=== PATIENT | male | born 1970 | race Caucasian/White ===

== ENCOUNTER 2024-06-06 21:58 | Emergency (ER) | payer BC, SELFPAY ==
--- OUTSIDE RECORDS SUMMARY | 2024-06-06 22:00 | XMS_ITS | Encounter Summary ---
Author Organization [facility] Address [address] [place] [address] Care Team Providers Care Dust Box Worker Name Role Phone Ami Gudino M.D. Primary Care Provider Reason for Visit * Reason Onset Date Comments Rx Approval 03/24/2024 upadacitinib (Ri nvoq) 15 mg 24 hr tablet Approval Encounter Details Date Type Department Care Team (Latest Contact Info) Description 03/24/2024 Clinical Communication Pharmacy Prior Auth [phone] Leeanna Nino [address] [place] [address] Rx Approval (upadacitinib (Rinvoq) 15 mg 24 hr tablet Approval) Social History Tobacco Use Types Packs/Day Years Used Date Smoking Tobacco: Never Smokeless Tobacco: Never Alcohol Use Standard Drinks/Week Comments Yes 2 (1 standard drink = 0.6 oz pur e alcohol) Occasionally Humiliation, Afraid, Rape, and Kick questionnair e Answer Date Recorded Within the last year, have y ou been afraid of your partner or ex-partner? No 12/08/2021 Within the last year, have y ou been humiliated or emotionally abused in other ways by your partner or ex-partner? No Within the last year, have y ou been kicked, hit, slapped, or otherwise physically hurt by your partner or ex-partner? No 12/08/2021 Within the last year, have y ou been raped or forced to have any kind of sexual activity by your partner or ex-partner? No 12/08/2021 Social Connection and Isolat ion Panel [NHANES] Answer Date Recorded In a typical week, how many times do you talk on the phone with family, friends, or neighbors? More than three times a week 12/08/2021 How often do you get togethe r with friends or relatives? Once a week 12/08/2021 How often do you attend chur ch or presybeterian services? Never 12/08/2021 Do you belong to any clubs o r organizations such as religion groups, unions, fraternal or athletic groups, or school groups? No 12/08/2021 How often do you attend meet ings of the clubs or organizations you belong to? Never 12/08/2021 Are you , , di vorced, , never , or living with a partner? 12/08/2021 AUDIT-C Answer Date Recorded Q1: How often do you have a drink containing alc ohol? Patient declined 12/08/2021 Average Number of Drinks Not on file 022 Frequency of Binge Drinking Not on file 11/27 Overall Financial Resource Strain (CARDIA) Answe r Date Recorded How hard is it for you to pa y for the very basics like food, housing, medical care, and heating? Not very hard 12/18/2022 PHQ-2 Answer Date Recorded PHQ-2 Score 1 03[facility]24 [facility] Questionnaire Answer Date Recorded Do you feel stress - tense, restless, nervous, or anxious, or unable to sleep at night because your mind is troubled all the time - these days? Not at all 12/08/2021 Exercise Vital Sign Answer Date Recorde d On average, how many days pe r week do you engage in moderate to strenuous exercise (like a brisk walk)? 5 days 12/18/2022 On average, how many minutes do you engage in exercise at this level? 90 min 12/18/2022 Hunger Vital Sign Answer Date Recorded Within the past 12 months, y ou worried that your food would run out before you got the money to buy more. Never true 12/19/19 23 Within the past 12 months, t he food you bought just didn't last and you didn't have money to get more. Never true 12/18/2022 PRAPARE - Transportation Answer Date Re corded In the past 12 months, has l ack of transportation kept you from medical appointments or from getting medications? No 11/28 In the past 12 months, has l ack of transportation kept you from meetings, work, or from getting things needed for daily living? No 12/18/2022 Depression Answer Date Recor ded PHQ-9 Total Score (max 27) 3 03/10 Nutrition Answer Date Recorded On average, how many serving s of fruits and vegetables do you eat per day (serving size is equal to 1 cup or approximately the size of a tennis ball)? 0-2 12/18/2022 Dental Answer Date Recorded Dental: Regular Dentist No 03/10/20 Employment Answer Date Recorded Employment status Employed and actively working without restrictions 12/18/2022 Housing Stability Answer Date Recorded What is your living situation today? I have a [facility] place to live 12/18/2022 Education Answer Date Recorded What is the highest level of school you have completed or the highest degree you have received? Associate degree: occupational, technical, or vocational program 04/07/2021 Sex and Gender Information Value Date Recorded Sex Assigned at Male 03/10/2021 3:00 AM CREAM MAKER Legal Sex Male 6:27 PM CREAM MAKER Gender Identity Male 03/10/2021 3:00 AM CREAM MAKER Sexual Orientation Choose not to disclose 2022 10:55 PM CDT Sexual Orientation Straight 11/05/2022 10 :55 PM CDT documented as of this encounter Miscellaneous Notes * Telephone Encounter - Leeanna Nino - 03/24/2024 1:55 PM CST Pharmaceutical prior authorization has been approved for upadacitinib (Rinvoq) 15 mg 24 hr tablet Approval If you have any follow-up questions, please send an [employer] in [employer] message to [facility]. M MAKER documented in this encounter Plan of Treatment Upcoming Encounters Date Type Department Care Team (Latest Contact Info) Description 08/17/2024 10:00 AM CDT Clinical Communication Virtual Review in [address] [phone] 08/18/2024 12:30 PM CDT Appointment Department of Laboratory Medicine and Pathology, [facility], in [place], [place] [address] [place] [address] Jessica Hendricks APRN, C.N.P. [address] [place] [address] 08/18/2024 2:45 PM CDT Office Visit Division of Rheumatology in [place], [place] [address] [place] [address] Jessica Hendricks APRN, C.N.P. [address] [place] [phone] documented as of this encounter Visit Diagnoses Not on filedocumented in this encounter Additional Health Concerns Assessment Noted Time PHQ-9 Depression Total Score: 3 03/10/20 24 1:06 PM CREAM MAKER documented as of this encounter Care Teams Dust Box Worker Relationship Specialty Start Date End Date Ami Gudino M.D. [address] [place] [phone] PCP - General 09/10/23 documented as of this encounter
--- OUTSIDE RECORDS SUMMARY | 2024-06-06 22:00 | XMS_ITS | Encounter Summary ---
Author Organization [facility] Address [address] [place] [address] Care Team Providers Care Loading Manager Name Role Phone Ami Gudino M.D. Primary Care Provider Reason for Visit * Reason Comments Hernia Possible Hernia * Appointment Request (Routine) - Closed Specialty Diagnoses / Procedures Referred By Kassandra lagunas Referred To Contact Family Medicine Referral ID Status Reason Start Date Expiration Date Visits Re quested Visits Authorized [id number] Closed 05/22/2024 08/22/2025 1 1 Encounter Details Date Type Department Care Team (Late st Contact Info) Description 05/25/2024 8:30 AM FRANCHISE BROKER Office Visit Department of Family Medicine, [facility], in [place], [place] [address] [phone] Maddi Munoz P.A.-Sarah., P.A., M.S., M.P.H. [address] [phone] Candidiasis Intertrigo (Primary Dx); Injury Abdominal Muscle Subsequent Social History Tobacco Use Types Packs/Day Years [...] often do you attend chur ch or druze services? Never 12/08/2021 Do you belong to any clubs o r organizations such as uatsdin groups, unions, fraternal or athletic groups, or [...] 12/18/2022 PHQ-2 Answer Date Recorded PHQ-2 Score 2 05/25/2024 [facility] Occupat ional Health - Occupational Stress Questionnaire Answer [...] Recor ded PHQ-9 Total Score (max 27) 4 05/05 Nutrition Answer Date Recorded On average, how [...] your living situation today? I have a [facility] place to live 12/18/2022 Education Answer Date Recorded What is the highest level of school you have completed or the highest degree you have received? Associate degree: occupational, technical, or vocational program 04/07/2021 Sex and Gender Information Value Date Recorded Sex Assigned at Male 03/10/2021 3:00 AM FRANCHISE BROKER Legal Sex Male 6:27 PM FRANCHISE BROKER Gender Identity Male 03/10/2021 3:00 AM FRANCHISE BROKER Sexual Orientation Choose not to disclose 2022 10:55 PM CDT Sexual Orientation Straight 11/05/2022 10 :55 PM CDT documented as of this encounter Last Filed Vital Signs Vital Sign Reading Time Taken Comments Blood Pressure 133/82 05/25/2024 8:11 AM FRANCHISE BROKER Re3 check Pulse 69 05/25/2024 8:11 AM FRANCHISE BROKER Temperature 36.1 C (96.9 F) 05/25/2024 8:06 AM FRANCHISE BROKER Respiratory Rate - - Oxygen Saturation - - Inhaled Oxygen Concentration - - Weight 145 kg (320 lb 5.3 oz) 05/25/2024 8:06 AM FRANCHISE BROKER Height 185.5 cm (6' 1.03) 05/25/2024 8:06 AM CS T Body Mass Index 42.23 05/25/2024 8:06 AM FRANCHISE BROKER documented in this encounter Progress Notes * Maddi Munoz P.A.-C., PJohn, MCarmenS., M.P.H. - 05/25/2024 8:30 AM FRANCHISE BROKER SUBJECTIVE CHIEF COMPLAINT/REASON FOR VISIT Keshav Benoit is a 54 y.o. male who presents for evaluation of Hernia (Possible Hernia). HISTORY OF PRESENT ILLNESS Keshav Benoit is a 54 y.o. male with a health history significant for rheumatoid arthritis, coccydynia, depressive disorder, erectile dysfunction, prostate nodule, anxiety phobia specific, who presents today with concerns of having a hernia. A couple of months ago, his hit a bump with his chicken picker truck and felt a jolt and tearing pain in the suprapubic area radiating to the groins , scrotum, and upper thighs. Patient has not resolved. Pain occurs only when he moves, he feels he is tearing apart when changing sides in bed, walking, sitting. No mass noticed. No urinary or stool changes, but the event happened at the same time he had a cystoscopy. He wonders if these could be related. The following portions of the patient's history were reviewed and updated as appropriate: Family history, medical history, social history, surgical history and problem list. CURRENT MEDICATIONS Current Medications[1] ALLERGIES/CONTRAINDICATIONS Allergies[2] REVIEW OF SYSTEMS Please see History of Present Illness for pertinent positives and negatives, otherwise full remainder of Review of Systems negative. OBJECTIVE VITAL SIGNS BP 133/82 (BP Location: Right arm, Patient Position: Sitting, Cuff Size: Large) Comment: [id number] Pulse 69 Temp 36.1 ??C (Temporal) Ht 185.5 cm Wt (!) 145 kg BMI 42.23 kg/m?? PHYSICAL EXAMINATION General: Patient is alert and oriented, in no acute distress. Capable of full communication withoutdifficulty. Patient is polite and cooperative, appropriately dressed and with good hygiene. HEENT: Normocephalic, atraumatic. Heart: Regular rate and rhythm. No murmurs, gallops or rubs noted. No carotids bruit. Lungs: Clear to auscultation bilaterally. No wheezes or crackles. No accessory muscles of respiration noted. Abdomen: normal sounds, distended and redundant abdomen, in a fold over the pelvic area, with intertrigo. There is mild tenderness to palpation of right inguinal region. No masses found. No Elvira appendix pain. No guarding or rebound. Genital exam: (done with a rounding and backing machine operator from staff) Normal genitalia. Normal scrotum and testes. Thereare not palpable inguinal hernias noted. ASSESSMENT / PLAN #1 Candidiasis Intertrigo #2 Injury Abdominal Muscle Subsequent I indicated to apply clotrimazole cream 2 times daily until rash and pruritus resolve. Discussed potential diagnosis including inguinal hernia, abdominal muscle or recti fascia strain, pubalgia. I am inclined to diagnosed this pain as a muscle or fascia strained secondary to the truck jumping.I also recommended to monitor the inguinal and scrotal areas for a mass, worsening pain, or erythema. I this happens he should return to the clinic or the ED. Patient understands and agrees with the plan. Maddi Munoz PA-C [1] Current Outpatient Medications: ARIPiprazole (Abilify) 5 mg tablet, Take 1 tablet (5 mg total) by mouth daily., Disp: 90 tablet, Rfl: 1 busPIRone (BuSpar) 15 mg tablet, Take 1 tablet (15 mg total) by mouth 2 (two) times a day., Disp: 180 tablet, Rfl: 1 cetirizine (ZyrTEC) 10 mg tablet, Take 1 tablet by mouth daily as needed., Disp: , Rfl: DULoxetine (Cymbalta) [address] capsule, Take 2 capsules (120 mg total) by mouth daily., Disp: 180 capsule, Rfl: 1 fluocinonide (LIDEX) 0.05 % ointment, Apply 1 application topically 2 (two) times a day as needed for irritation, itching or rash. Avoid face and groin., Disp: 60 g, Rfl: 0 gabapentin (Neurontin) 300 mg capsule, Take 1 capsule (300 mg total) by mouth 3 (three) times a day., Disp: 270 capsule, Rfl: 3 predniSONE (DELTASONE) 10 mg tablet, Take 1 tablet (10 mg total) by mouth as needed (RA flare)., Disp: 30 tablet, Rfl: 0 tamsulosin (Flomax) 0.4 mg 24 hr capsule, Take 1 capsule by mouth at bedtime, Disp: 90 capsule, Rfl: 3 triamcinolone (KENALOG) 0.1 % cream, Apply topically 2 (two) times a day., Disp: 30 g, Rfl: 1 upadacitinib (Rinvoq) 15 mg 24 hr tablet, Take 1 tablet (15 mg total) by mouth daily., Disp: 30 tablet, Rfl: 5 [2] Allergies Allergen Reactions Adalimumab Edema (Reselect Reaction) Facial swelling . Etanercept Other (see comments) Facial swelling CHISE BROKER documented in this encounter Plan of Treatment Upcoming Encounters Date Type Department Care Team (Latest Contact Info) Description 08/17/2024 10:00 AM CDT Clinical Communication Virtual Review in [address] [phone] 08/18/2024 12:30 PM CDT Appointment Department of Laboratory Medicine and Pathology, [facility], in [address] [phone] Jessica Hendricks APRN, C.N.P. [address] [place] [phone] 08/18/2024 2:45 PM CDT Office Visit Division of Rheumatology in [address] [phone] Jessica Hendricks APRN, C.N.P. [address] [place] [phone] documented as of this encounter Visit Diagnoses Diagnosis Candidiasis Intertrigo- Primary Injury Abdominal Muscle Subsequent documented in this encounter Additional Health Concerns Assessment Noted Time PHQ-9 Depression Total Score: 4 05/05/19 25 1:10 PM FRANCHISE BROKER documented as of this encounter Care Teams Loading Manager Relationship Specialty Start Date End Date Ami Gudino M.D. [address] [place] [phone] PCP - General 09/10/23 documented as of this encounter
--- OUTSIDE RECORDS SUMMARY | 2024-06-06 22:00 | XMS_ITS | Clinical Summary ---
Author Organization [facility] Address [address] [place] [address] Care Team Providers Care Sales Contracts Analyst Name Role Phone Chata Schwab MD Unavailable [phone] Estiven Hawkins MD Unavailable Unavailable Clinic, [facility] Primary [facility] Pro vider Allergies Active Allergy Reactions Criticality Noted Date Comments Etanercept Other - Describe In Comment Field 05/16/2019 Facial swelling Adalimumab Other - Describe In Comment Field 05/16/2019 Facial swelling . [place] *Unknown 06/03/2018 A doc told him that he was lithium intolerant Medications tamsulosin (FLOMAX) 0.4 mg capsuleIndication s:BPH without urinary obstruction,Rheum atoid arthritis, involving unspecified site, unspecified rheumatoid factor presence,Decrease d libido Take 1 capsule by mouth once daily after a meal. 90 capsule 3 12/01/19 19 Active camphor-menthoL (TIGER BALM) 11-11 % ointIndications:C hronic pain of right knee White ointment or sports rub, up to 5x/day as needed then warm compress over. 1 jar 05/20/19 21 Active triamcinolone (ARISTOCORT) 0.1 % ointmentIndicatio ns:Irritant contact dermatitis, unspecified trigger Apply topically to affected area(s) 3 times daily. 80 g 1 05/20/19 21 Active methotrexate (RHEUMATREX) 2.5 mg tabletIndications :High risk medication use,Medication management Take 6 tablets by mouth once weekly. 72 tablet. 1 02/22/20 21 Active folic acid 1 mg tabletIndications :Rheumatoid arthritis, involving unspecified site, unspecified whether rheumatoid factor present (HC),Medication management Take 1 tablet by mouth once daily. 90 tablet. 3 05/20/19 Active abatacept (ORENCIA CLICKJECT) subcutaneous autoinjector penIndications:Lo ng term current use of systemic steroids Inject 1 mL subcutaneous once weekly. 4 pen 2 05/20/19 Active predniSONE (DELTASONE) 10 mg tabletIndications :terminal makeup operator current use of systemic steroids Take 1 tablet by mouth once daily with a meal. 30 tablet. 05/20/19 Active ARIPiprazole (ABILIFY) 5 mg tablet Take 5 mg by mouth. 09/10/19 Active busPIRone (BUSPAR) 30 mg tablet Take 30 mg by mouth two times daily. 06/12/19 Active doxycycline 100 mg capsule TAKE 1 CAPSULE BY MOUTH TWICE DAILY BEFORE MORNING AND EVENING MEALS FOR 21 DAYS. 10/20/19 Active DULoxetine (CYMBALTA) 60 mg Delayed-release capsule Take 120 mg by mouth. 10/13/19 Active fluocinonide 0.05 % ointment Apply 1 Application topically to affected area(s) 2 times daily if needed. 03/12/20 Active methocarbamoL 500 mg tabletIndications :Torticollis, acute Take 1 Tablet (500 mg) by mouth 3 times daily if needed for Muscle Spasm. 20 Tablet 01/24/20 Active oxyCODONE (ROXICODONE) 5 mg immediate release tabletIndications :Torticollis, acute,Cervical radiculopathy Take 1 Tablet (5 mg) by mouth every 4 hours if needed for Pain. 12 Tablet 01/24/20 24 Active Active Problems No known active problems Immunizations Immunization Administration Dates Next Due Td (Age >=7 Years) 09/10/2008 Tuberculin (PPD) 11/30/2018 Social History Tobacco Use Types Packs/Day Years Used Date Smoking Tobacco: Never Smokeless Tobacco: Never Tobacco Cessation:Counseling Given: Yes Alcohol Use Standard Drinks/Week Comments No 0 (1 standard drink = 0.6 oz pur e alcohol) PHQ-2 Answer Date Recorded PHQ-2 TOTAL SCORE 0 05/20/2020 Social Connections Answer Date Recorded Frequency of Communication with Friends and Fami ly Not on file 03/29/2021 Financial Resource Strain Answer Date R ecorded Difficulty of Paying Living Expenses Not on file 03/29/2021 Difficulty of Paying Living Expenses Not on file 03/29/2021 Interpersonal Safety Answer Date Record ed Are you being hit, kicked, p ushed or yelled at (see row info)? 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 on file Not on file Not on file Obstetrics History Last Filed Vital Signs Vital Sign Reading Time Taken Comments Blood Pressure 97/79 01/24/2024 7:28 AM CDT Pulse 70 01/24/2024 7:28 AM CDT Temperature 36.7 C (98 F) 01/24/2024 5:11 AM CDT Respiratory Rate 20 01/24/2024 5:11 AM CDT Oxygen Saturation 93% 01/24/2024 7:28 AM CDT Inhaled Oxygen Concentration - - Weight 147.6 kg (325 lb 4.8 oz) 01/24/2024 5:11 AM CDT Height 188 cm (6' 2) 01/24/2024 5:11 AM CDT Body Mass Index 41.77 01/24/2024 5:11 AM CDT Plan of Treatment Health Maintenance Due Date Last Done Comments COVID-19 vaccine series (#1) 01/13/1973 Tdap 01/13/1979 HIV for age 15-65 01/13/1983 Zoster (shingles) series for age 50+ (1 of 2) 01/13/1987 Colonoscopy through age 75 01/13/2013 Pneumococcal series for age 50+ (1 of 1 - PCV) 01/13/2018 Tetanus booster 09/10/2018 09/10/2008 BMI (ht and wt on same day) for age 18+ 05/20/2021 05/20/2020, 02/14/2019, 11/30/2018, Additional history exists Depression screening for age 12+ 05/20/2021 05/20/2020, 05/20/2020, 05/20/2020, Additional history exists Influenza Vaccine (#1) 2023 Lipids for age 45-75 12/01/2023 11/30/2018 Hepatitis C screening for ag e 18-79 Completed 02/14/2019, 11/30/2018 Procedures Procedure Name Priority Date/Time Associated Diagnosis Comments ANTI HCV Routine 02/14/2019 9:15 AM COMPUTER EDUCATION TEACHER Rheumatoid arthritis, seropositive (HC) LIPID PANEL Routine 11/30/2018 10:12 AM CDT Lipid screening from Last 3 Months or Most Recently Relevant to Health Maintenance Results * ANTI HCV (02/14/2019 9:15 AM COMPUTER EDUCATION TEACHER) HEPATITIS C ANTIBODY Non-React сергей Non-React сергей 02/14/2019 4:10 PM COMPUTER EDUCATION TEACHER [facility] Comment:Antibodies to HCV no t detected; does not exclude the possibility of exposure to HCV. Blood BLOOD SPECIMEN / Unknown Venipuncture / Unknown 02/14/2019 9:15 AM COMPUTER EDUCATION TEACHER 02/14/2019 9:19 AM COMPUTER EDUCATION TEACHER us Chata Schwab MD SEND OUTS Final Resul t [facility] [address] [place] [address], * LIPID PANEL (11/30/2018 10:12 AM CDT) CHOLESTEROL,TOTAL 145 100 - 199 mg/dL 11/30/2018 10:51 AM CDT [facility] TRIGLYCERIDES 65 <150 mg/dL 11/30/2018 10:51 AM CDT [facility] HDL CHOLESTEROL 48 >40 mg/dL 9 10:51 AM CDT [facility] NON-HDL CHOLESTEROL 97 <145 mg/dl 11/30/2018 10:51 AM CDT [facility] CHOL/HDL RATIO 3.02 <4.50 11/30/2018 10:51 AM CDT [facility] LDL CHOLESTEROL 84 <=130 mg/dL 11/30/2018 10:51 AM CDT [facility] PROVIDER ORDERED STATUS RANDOM 11/30/2018 10:51 AM CDT [facility] Blood BLOOD SPECIMEN / Unknown Venipuncture / Unknown 11/30/2018 10:12 AM CDT 11/30/2018 10:12 AM CDT us Faith Caal MD CHEMISTRY Final Result Performing Organization Address City/State/RUST Co de Phone Number [facility] [address] [place] [address] from Last 3 Months or Most Recently Relevant to Health Maintenance Insurance [employer] Care Teams Sales Contracts Analyst Relationship Specialty Start Date End Date Clinic, [facility] [address] [place] [address] PCP - General 11/14/20 Chata Schwab MD [address] [facility] [address] [place] [address] Rheumatology Rheumatology 02/14/19 Estiven Hawkins MD [address] [facility] [address] [place] [address] Family Practice Family Practice 02/14/19
--- OUTSIDE RECORDS SUMMARY | 2024-06-06 22:00 | XMS_ITS | Clinical Summary ---
Author Organization [facility] Address [address] [place] [address] Care Team Providers Care University Administrative Assistant Name Role Phone Ami Gudino M.D. Primary Care Provider Source Comments Patient records contain information from all sites at [facility]. For routine questions regarding patient records, call [phone] during business hours, M-F 8:00 AM - 5:00 PM Central Time. Record requests for emergency care only can be directed to [phone] at any time.[facility] Allergies Active Allergy Reactions Criticality Noted Date Comments Adalimumab Edema (Reselect Reaction) 05/16/2019 Facial swelling . Etanercept Other (see comments) 05/16/2019 Facial swelling Medications * This document contains information received from the source organization and may not represent a complete record from that organization. cetirizine (ZyrTEC) 10 mg tablet Take 1 tablet by mouth daily as needed. 03/03/20 13 Active triamcinolone (KENALOG) 0.1 % creamIndications:A rthritis Rheumatoid (HCC) Apply topically 2 (two) times a day. 30 g 1 03/12/20 22 Active fluocinonide (LIDEX) 0.05 % ointmentIndication s:Rash Leg Apply 1 application topically 2 (two) times a day as needed for irritation, itching or rash. Avoid face and groin. 60 g 03/12/20 22 Active predniSONE (DELTASONE) 10 mg tabletIndications: Arthritis Rheumatoid (HCC) Take 1 tablet (10 mg total) by mouth as needed (RA flare). 30 tablet 06/14/19 24 Active gabapentin (Neurontin) 300 mg capsuleIndications :Stenosis Spine Foraminal,Neuropat hy Take 1 capsule (300 mg total) by mouth 3 (three) times a day. 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 30 tablet 5 03/17/20 24 Active tamsulosin (Flomax) 0.4 mg 24 hr capsuleIndications :Benign Prostatic Hyperplasia Without Obstruction Take 1 capsule by mouth at bedtime 90 capsule 3 04/19/19 25 Active busPIRone (BuSpar) 15 mg tablet Take 1 tablet (15 mg total) by mouth 2 (two) times a day. 180 tablet 1 05/05/19 25 Active DULoxetine (Cymbalta) [address] capsule Take 2 capsules (120 mg total) by mouth daily. 180 capsule 1 05/05/19 25 Active ARIPiprazole (Abilify) 5 mg tablet Take 1 tablet (5 mg total) by mouth daily. 90 tablet 1 05/05/19 25 Active oxyCODONE (Roxicodone) 5 mg immediate release tablet Take 5 mg by mouth every 4 (four) hours as needed. 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 Date Type Department Care Team Description 05/25/2024 8:30 AM ADVERTISING AGENCY MANAGER Office Visit Department of Family Medicine, [facility], in [place], [place] [address] [address] Maddi Munoz P.A.-C., P.Neeta., M.S., M.P.H. Candidiasis Intertrigo (Primary Dx); Injury Abdominal Muscle Subsequent 04/17/2024 Refill Department of Family Medicine, [facility], in [place], [place] [address] [phone] Britney Singh M.D. Med Refill 04/06/2024 10:00 AM ADVERTISING AGENCY MANAGER Comprehensive Visit Department of Spine in [place], [place] [address] [place] [address] Misbah Bell D.O. Stenosis Spinal Cervical (Primary Dx); Radiculopathy Cervical; Stenosis Spine Foraminal; Pain Arm Right 03/24/2024 Clinical Communication Pharmacy Prior Auth RO [id number] Leeanna Nino Rx Approval (upadacitinib (Rinvoq) 15 mg 24 hr tablet Approval) 03/21/2024 Orders Only [facility] S[facility]F [facility] [address] [place] [address] Ami Gudino M.D. Screening Cancer Colon 03/17/2024 2:00 PM ADVERTISING AGENCY MANAGER Office Visit Division of Rheumatology in [place], [place] [address] [place] [address] Jessica Hendricks APRN, C.N.P. 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 Stenosis Spine Foraminal (Primary Dx); Neuropathy from Last 3 Months Immunizations Immunization Administration Dates Next Due Td (Adult), adsorbed 09/10/2008 Tdap 02/03/2008 influenza vaccine quad (FLUZ ONE/FLUARIX) (6 months and older)(PF) 02/12/2017 Family History Medical History Relation Name Comments Completed Suicide Cousin Diabetes Father Na Lung cancer Lung cancer Father Na Father non biol ogical. Biological father father passed with lung cancer also diabetic Clotting disorder Mother Agata Roland fact or 5 Factor V Leiden genotype Mother Agata Lung cancer Mother Agata Ra, jennifer, fact or 5 various other auto immunes, bone cancer Obesity Mother Agata Other cancer Mother Agata Bone cancer Polymyositis Mother Agata Rheum arthritis Mother Agata Completed Suicide Mother's Sister 1 Psychiatric disorder Mother's Sister 2 Relation Name Status Comments Cousin Father Na Mother Agata Alive Mother's Sister 1 Mother's Sister 2 Alive Social History Tobacco Use Types Packs/Day Years Used Date Smoking Tobacco: Never Smokeless Tobacco: Never Tobacco Cessation:Counseling Given: Not Answered Alcohol Use Standard Drinks/Week Comments Yes 2 [...] often do you attend chur ch or uatsdin services? Never 12/08/2021 Do you belong to any clubs o r organizations such as scientology groups, unions, fraternal or athletic groups, or [...] Answer Date Recorded PHQ-2 Score 2 05/25/2024 [facility] - Occupational Stress [...] your living situation today? I have a [facility] place to live 12/18/2022 Education Answer Date Recorded What is the highest level of school you have completed or the highest degree you have received? Associate degree: occupational, technical, or vocational program 04/07/2021 Sex and Gender Information Value Date Recorded Sex Assigned at Male 03/10/2021 3:00 AM ADVERTISING AGENCY MANAGER Legal Sex Male 6:27 PM ADVERTISING AGENCY MANAGER Gender Identity Male 03/10/2021 3:00 AM ADVERTISING AGENCY MANAGER Sexual Orientation Choose not to disclose 2022 10:55 PM CDT Sexual Orientation Straight 11/05/2022 10 :55 PM CDT Last Filed Vital Signs Vital Sign Reading Time Taken Comments Blood Pressure 133/82 05/25/2024 8:11 AM ADVERTISING AGENCY MANAGER Re3 check Pulse 69 05/25/2024 8:11 AM ADVERTISING AGENCY MANAGER Temperature 36.1 C (96.9 F) 05/25/2024 8:06 AM ADVERTISING AGENCY MANAGER Respiratory Rate 14 11/07/2013 7:45 PM CDT Oxygen Saturation - - Inhaled Oxygen Concentration - - Weight 145 kg (320 lb 5.3 oz) 05/25/2024 8:06 AM ADVERTISING AGENCY MANAGER Height 185.5 cm (6' 1.03) 05/25/2024 8:06 AM CS T Body Mass Index 42.23 05/25/2024 8:06 AM ADVERTISING AGENCY MANAGER Plan of Treatment Upcoming Encounters Date Type Department Care Team (Latest Contact Info) Description 08/17/2024 10:00 AM CDT Clinical Communication Virtual Review in [place], [place] [address] [place] [address] 08/18/2024 12:30 PM CDT Appointment Department of Laboratory Medicine and Pathology, [facility], in [place], [place] [address] [place] [address] Jessica Hendricks APRN, C.N.P. [address] [place] [phone] 08/18/2024 2:45 PM CDT Office Visit Division of Rheumatology in [place], [place] [address] [place] [address] Jessica Hendricks APRN, C.N.P. [address] [place] [address] Health Maintenance Due Date Last Done Comments CT Colonography 1968 Colonoscopy 1968 FIT 1968 COVID-19 Vaccine (#1) 01/13/1973 Hepatitis B Vaccines (1 of 3 - 19+ 3-dose series) 01/13/1987 Pneumococcal vaccine (50+ years) (1 of 2 - PCV) 01/13/1987 Zoster Vaccines (1 of 2) 01/13/1987 DTaP,Tdap,and Td Vaccines (3 - Td or Tdap) 09/10/2018 09/10/2008, 02/03/2008 Cologuard 10/01/2023 Colorectal Cancer Screening 10/01/2023 Influenza Vaccine (#1) 2023 02/12/2017 Fasting Glucose for Diabetes Screening 03/24/2026 03/24/2023, 12/04/2022, 12/04/2022, Additional history exists Lipid (Cholesterol) Screening 12/05/2027 12/04/2022, 03/12/2022, 11/30/2018, Additional history exists HIV Screening Completed 03/24/2023 Hepatitis B Screening Discontinued 06/14/2023 Depression Screening (Annual PHQ-2) Completed 05/25/2024, 05/25/2024 HPV Vaccines Aged Out No longer eligi ble based on patient's age to complete this topic IPV Vaccines Aged Out No longer eligi ble based on patient's age to complete this topic Medical Devices Implanted Type Area Featherer Device Identifier Shelf Expiration Date Model / Serial / Lot Ocular Lens Ocular Lens Right: Eye Ocular Lens Ocular Lens Eye Procedures Procedure Name Priority Date/Time Associated Diagnosis Comments ALANINE AMINOTRANSFERASE (ALT), S/P Routine 03/17/2024 11:27 AM ADVERTISING AGENCY MANAGER 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) ASPARTATE AMINOTRANSFERASE (AST), S/P Routine 03/17/2024 11:27 AM ADVERTISING AGENCY MANAGER 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) CREATININE WITH EGFR, S/P Routine 03/17/2024 11:27 AM ADVERTISING AGENCY MANAGER 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) C-REACTIVE PROTEIN (CRP), S/P Routine 03/17/2024 11:27 AM ADVERTISING AGENCY MANAGER 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) SEDIMENTATION RATE, B Routine 03/17/2024 11:27 AM ADVERTISING AGENCY MANAGER 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) CBC WITH DIFFERENTIAL, B Routine 03/17/2024 11:27 AM ADVERTISING AGENCY MANAGER 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) HEPATITIS B SURFACE ANTIGEN Routine 06/14/2023 2:21 PM CDT Arthritis Rheumatoid (HCC) High Risk Medication COMPREHENSIVE METABOLIC PANEL, S/P Routine 03/24/2023 3:01 PM ADVERTISING AGENCY MANAGER Onychomycosis HIV-1/-2 AG AND AB SCREEN, PLASMA Routine 03/24/2023 3:01 PM ADVERTISING AGENCY MANAGER Human Immunodeficiency Virus Screening LIPID PANEL, S Routine 12/04/2022 12:04 PM CDT Screening Lipid from Last 3 Months or Most Recently Relevant to Health Maintenance Results * Sedimentation Rate (03/17/2024 11:27 AM ADVERTISING AGENCY MANAGER) Sedimentation Rate, B 3 0 - 22 mm/1 h 03/17/2024 3:36 PM ADVERTISING AGENCY MANAGER AUST Blood (Blood, Venous) 03/17/2024 11:27 AM ADVERTISING AGENCY MANAGER 03/17/2024 3:12 PM ADVERTISING AGENCY MANAGER us Jeff Barillas APRNNNoreen LAB BLOOD ADD-ON F inal Result [facility] [address] [place] [address], [facility] [facility] - [facility] [address] [place] [address] * CBC with Differential, Blood (03/17/2024 11:27 AM ADVERTISING AGENCY MANAGER) Hemoglobin 14.8 13.2 - 16.6 g/dL 03/17/2024 11:34 AM ADVERTISING AGENCY MANAGER OWAT Hematocrit 44.7 38.3 - 48.6 % 03/17/2024 11:34 AM ADVERTISING AGENCY MANAGER OWAT Erythrocytes 5.06 4.35 - 5.65 x10(12)/L 03/17/2024 11:34 AM ADVERTISING AGENCY MANAGER OWAT MCV 88.3 78.2 - 97.9 fL 03/17/2024 11:34 AM ADVERTISING AGENCY MANAGER OWAT RBC Distrib Width 13.3 11.8 - 14.5 % 03/17/2024 11:34 AM ADVERTISING AGENCY MANAGER OWAT Platelet Count 285 135 - 317 x10(9)/L 03/17/2024 11:34 AM ADVERTISING AGENCY MANAGER OWAT Leukocytes 7.0 3.4 - 9.6 x10(9)/L 03/17/2024 11:34 AM ADVERTISING AGENCY MANAGER OWAT Neutrophils 4.04 1.56 - 6.45 x10(9)/L 03/17/2024 11:34 AM ADVERTISING AGENCY MANAGER OWAT Lymphocytes 2.05 0.95 - 3.07 x10(9)/L 03/17/2024 11:34 AM ADVERTISING AGENCY MANAGER OWAT Monocytes 0.56 0.26 - 0.81 x10(9)/L 03/17/2024 11:34 AM ADVERTISING AGENCY MANAGER OWAT Eosinophils 0.33 0.03 - 0.48 x10(9)/L 03/17/2024 11:34 AM ADVERTISING AGENCY MANAGER OWAT Basophils 0.05 0.01 - 0.08 x10(9)/L 03/17/2024 11:34 AM ADVERTISING AGENCY MANAGER OWAT Blood (Blood, Venous) 03/17/2024 11:27 AM ADVERTISING AGENCY MANAGER 03/17/2024 11:31 AM ADVERTISING AGENCY MANAGER Sarah Barillas APRN.N.P. LAB BLOOD ADD-ON F inal Result [facility] [address] [place] [address], [place] [facility] in [place] [address] [place] [address] * CRP (C-Reactive Protein) (03/17/2024 11:27 AM ADVERTISING AGENCY MANAGER) C-Reactive Protein (CRP), P <3.0 <5.0 mg/L 03/17/2024 11:55 AM ADVERTISING AGENCY MANAGER OWAT Blood (Blood, Venous) 03/17/2024 11:27 AM ADVERTISING AGENCY MANAGER 03/17/2024 11:31 AM ADVERTISING AGENCY MANAGER Jessica Hendricks APRN, C.N.P. LAB BLOOD ADD-ON F inal Result Performing Organization Address City/[facility]/ZIP Co de Phone Number [facility] [address] [place] [address], [place] [facility] [place] [address] [place] [address] * ALT (Alanine Aminotransferase) (03/17/2024 11:27 AM ADVERTISING AGENCY MANAGER) Alanine Aminotransferase (ALT), P 46 7 - 55 U/L 03/17/2024 11:55 AM ADVERTISING AGENCY MANAGER OWAT Blood (Blood, Venous) 03/17/2024 11:27 AM ADVERTISING AGENCY MANAGER 03/17/2024 11:31 AM ADVERTISING AGENCY MANAGER Jessica Hendricks APRN, C.N.P. LAB BLOOD ADD-ON F inal Result [facility] [address] [place] [address], [place] [facility] [place] [address] [place] [address] * AST (Aspartate Aminotransferase) (03/17/2024 11:27 AM ADVERTISING AGENCY MANAGER) Aspartate Aminotransferase (AST), P 23 8 - 48 U/L 03/17/2024 11:55 AM ADVERTISING AGENCY MANAGER OWAT Blood (Blood, Venous) 03/17/2024 11:27 AM ADVERTISING AGENCY MANAGER 03/17/2024 11:31 AM ADVERTISING AGENCY MANAGER Jessica Hendricks APRN, C.N.P. LAB BLOOD ADD-ON F inal Result Performing Organization Address City/[facility]/ZIP Co de Phone Number [facility] [address] [place] [address], [place] [facility] [place] [address] [place] [address] * Creatinine with Estimated GFR (03/17/2024 11:27 AM ADVERTISING AGENCY MANAGER) Creatinine 1.04 0.74 - 1.35 mg/dL 03/17/2024 11:55 AM ADVERTISING AGENCY MANAGER OWAT Estimated GFR (eGFR) 84 >=60 mL/min/BSA 03/17/2024 11:55 AM ADVERTISING AGENCY MANAGER OWAT Comment: Estimated GFR calculated using the 2020 CKD_EPI creatinine equation. Blood (Blood, Venous) 03/17/2024 11:27 AM ADVERTISING AGENCY MANAGER 03/17/2024 11:31 AM ADVERTISING AGENCY MANAGER Jessica Hendricks APRN, C.N.P. LAB BLOOD ADD-ON F inal Result [facility] [address] [place] [address], [place] [facility] [place] [address] [place] [address] * Hepatitis B Surface Antigen (06/14/2023 2:21 PM CDT) HBs Antigen, S Nonreactive Nonreactive 06/14/2023 10:18 PM CDT AUST Blood (Blood, Venous) 06/14/2023 2:21 PM CDT 06/14/2023 9:24 PM CDT Jessica Hendricks APRN, C.N.P. LAB MICROBIOLOGY - BLOOD ORDERABLES Final Result [facility] [address] [place] [address], [facility] - [facility] [address] [place] [address] * HIV-1/-2 Ag and Ab Screen, Plasma (03/24/2023 3:01 PM ADVERTISING AGENCY MANAGER) HIV Ag/Ab Screen, P Negative Negative 03/25/2023 2:36 PM ADVERTISING AGENCY MANAGER [facility] Comment: Negative result does not rule out HIV infection. If exposure to HIV infection occurred <14 days ago, contact the laboratory to request addition of HIV-1/HIV-2 RNA detection, Plasma (HIP12). HIV-1 p24 Ag Screen, P Negative Negative 03/25/2023 2:36 PM ADVERTISING AGENCY MANAGER [facility] Comment: Negative result does not rule out HIV infection. If exposure to HIV infection occurred <14 days ago, contact the laboratory to request addition of HIV-1/HIV-2 RNA detection, Plasma (HIP12). HIV-1 Ab Screen, P Negative Negative 03/25/2023 2:36 PM ADVERTISING AGENCY MANAGER [facility] Comment: Negative result does not rule out HIV infection. If exposure to HIV infection occurred <14 days ago, contact the laboratory to request addition of HIV-1/HIV-2 RNA detection, Plasma (HIP12). HIV-2 Ab Screen, P Negative Negative 03/25/2023 2:36 PM ADVERTISING AGENCY MANAGER [facility] Comment: Negative result does not rule out HIV infection. If exposure to HIV infection occurred <14 days ago, contact the laboratory to request addition of HIV-1/HIV-2 RNA detection, Plasma (HIP12). Blood (Blood, Venous) 03/24/2023 3:01 PM ADVERTISING AGENCY MANAGER 03/25/2023 11:15 AM ADVERTISING AGENCY MANAGER us Britney Singh M.D. LAB MICROBIOLOGY - BLOOD O RDERABLES Final Result [facility] [address] [place] [address], [facility] in [place] [address] [place] [address] * (ABNORMAL) Comprehensive Metabolic Panel (03/24/2023 3:01 PM ADVERTISING AGENCY MANAGER) Potassium, P 3.8 3.6 - 5.2 mmol/L 03/24/2023 3:45 PM ADVERTISING AGENCY MANAGER OWAT Sodium, P 141 135 - 145 mmol/L 03/24/2023 3:45 PM ADVERTISING AGENCY MANAGER OWAT Chloride, P 106 98 - 107 mmol/L 03/24/2023 3:45 PM ADVERTISING AGENCY MANAGER OWAT Bicarbonate, P 23 22 - 29 mmol/L 03/24/2023 3:45 PM ADVERTISING AGENCY MANAGER OWAT Anion Gap, P 12 7 - 15 03/24/2023 3:45 PM ADVERTISING AGENCY MANAGER [facility] BUN (Blood Urea Nitrogen), P 22 8 - 24 mg/dL 03/24/2023 3:45 PM ADVERTISING AGENCY MANAGER OWAT Creatinine 0.72(L) 0.74 - 1.35 mg/dL 03/24/2023 3:45 PM ADVERTISING AGENCY MANAGER OWAT Estimated GFR (eGFR) >90 >=60 mL/min/BS A 03/24/2023 3:45 PM ADVERTISING AGENCY MANAGER OWAT Comment: Estimated GFR calculated using the 2020 CKD_EPI creatinine equation. Calcium, Total, P 9.2 8.6 - 10.0 mg/dL 03/24/2023 3:45 PM ADVERTISING AGENCY MANAGER OWAT Glucose, P 105 70 - 140 mg/dL 03/24/2023 3:45 PM ADVERTISING AGENCY MANAGER OWAT Protein, Total, P 7.6 6.3 - 7.9 g/dL 03/24/2023 3:45 PM ADVERTISING AGENCY MANAGER OWAT Albumin, P 4.7 3.5 - 5.0 g/dL 03/24/2023 3:45 PM ADVERTISING AGENCY MANAGER OWAT Aspartate Aminotransferase (AST), P 19 8 - 48 U/L 03/24/2023 3:45 PM ADVERTISING AGENCY MANAGER OWAT Alkaline Phosphatase, P 74 40 - 129 U/L 03/24/2023 3:45 PM ADVERTISING AGENCY MANAGER OWAT Alanine Aminotransferase (ALT), P 36 7 - 55 U/L 03/24/2023 3:45 PM ADVERTISING AGENCY MANAGER OWAT Bilirubin, Total, P 0.4 0.0 - 1.2 mg/dL 03/24/2023 3:45 PM ADVERTISING AGENCY MANAGER OWAT Blood (Blood, Venous) 03/24/2023 3:01 PM ADVERTISING AGENCY MANAGER 03/24/2023 3:04 PM ADVERTISING AGENCY MANAGER us Britney Singh M.D. LAB BLOOD ADD-ON Final Res ult [facility] [address] [place] [address], [facility] [place] [address] [place] [address] * Lipid Panel (12/04/2022 12:04 PM CDT) Triglycerides 84 mg/dL 12/04/2022 12:39 PM CDT OWAT Comment: ----REFERENCE VALUE---- Normal: <150 mg/dL Borderline High: 150-199 mg/dL High: 200-499 mg/dL Very High: > or =500 mg/dL Cholesterol, Total 158 mg/dL 2022 12:39 PM CDT OWAT Comment: ----REFERENCE VALUE---- Desirable: < 200 mg/dL Borderline High: 200 - 239 mg/dL High: > or = 240 mg/dL Cholesterol, LDL, Calculated 84 mg/dL 12/04/2022 12:39 PM CDT OWAT Comment: ----REFERENCE VALUE---- Desirable: <100 mg/dL Above Desirable: 100-129 mg/dL Borderline High: 130-159 mg/dL High: 160-189 mg/dL Very High: >=190 mg/dL ----ADDITIONAL INFORMATION---- LDL cholesterol calculated using the [place]/NIH equation. Cholesterol, HDL 58 >=40 mg/dL 12/05/19 12:39 PM CDT OWAT Cholesterol, Non-HDL, Calculated 100 mg/dL 12/04/2022 12:39 PM CDT OWAT Comment: ----REFERENCE VALUE---- Desirable: <130 mg/dL Above Desirable: 130-159 mg/dL Borderline High: 160-189 mg/dL High: 190-219 mg/dL Very High: > or =220 mg/dL Fasting (8 HR or more) No 12/04/2022 12:05 PM CDT OWAT Blood (Blood, Venous) 12/04/2022 12:04 PM CDT 12/04/2022 12:05 PM CDT us Britney Singh M.D. 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 [address] [place] [phone] PCP - General 09/10/23
[2024-06-06 22:15] VITALS: BP 154/94; PULSE 83; RESP 18; TEMP 36.9; O2SAT 96; BMI 41.1
[2024-06-06 23:52] VITALS: BP 148/91; PULSE 67; O2SAT 94
[2024-06-06 23:58] LABS: Appearance Urine Clear (Clear); Bilirubin Urine Negative (Negative); Blood Urine Negative (Negative); Color Urine Yellow (Yellow); Glucose Urine Negative (Negative); Ketones Urine Negative (Negative); Leukocyte Esterase Urine Negative (Negative); Nitrite Urine Negative (Negative); Protein Urine Negative (Negative); Urobilinogen Urine 0.2 (0.2-1.0); pH Urine 5.5 (5.0-8.5)
--- NOTE | 2024-06-07 00:02 | ED.ABDPAIN ---
HPI - Abdominal Pain General Time Seen by Provider: 00:02 Date Seen: 06/07/24 Chief Complaint: Abdominal Pain Stated Complaint: Possible hernia, pain in lower abdomen Time Seen by Provider: 06/07/24 00:02 Source: patient, RN notes reviewed and old records reviewed Mode of arrival: ambulatory Limitations: no limitations History of Present Illness HPI narrative: 54-year-old male who presents today with lower abdominal pain which is been going on for months after being hitting a bump on his truck, previously has been seen at outside facility with labs done but no imaging. Returns today with continued pain. Pain is worse when he moves. Denies diarrhea, denies vomiting, denies blood in the stools. Related Data Home Medications ?Medication ?Instructions ?Recorded ?Confirmed aripiprazole 5 mg tablet 5 mg PO DAILY 06/06/24 06/06/24 buspirone 30 mg tablet 30 mg PO BID 06/06/24 06/06/24 duloxetine 60 mg capsule,delayed 120 mg PO DAILY 06/06/24 06/06/24 release folic acid 1 mg tablet 2 mg PO DAILY 06/06/24 06/06/24 gabapentin 100 mg capsule mg 06/06/24 gabapentin 300 mg capsule 300 mg PO 3XD 06/06/24 06/06/24 prednisone 10 mg tablet 10 mg PO 06/06/24 quetiapine 50 mg tablet 50 - 100 mg PO QPM 06/06/24 06/06/24 tamsulosin 0.4 mg capsule 0.4 mg PO QPM 06/06/24 06/06/24 upadacitinib 15 mg tablet,extended mg PO DAILY 06/06/24 release 24 hr (Rinvoq) Allergies Allergy/AdvReac Type Severity Reaction Status Date / Time adalimumab (From Humira) Allergy Severe Anaphylaxis Verified 06/06/24 22:31 lithium Allergy Severe Anaphylaxis Verified 06/06/24 22:31 Exam Narrative: Exam Narrative: General: Well-developed and well-nourished, no acute distress Head: Atraumatic and normocephalic Eyes: Pupils are equal reactive, extraocular motions intact, conjunctiva clear ENT: External nose and ears are normal, posterior pharynx without erythema or exudate Neck: No midline cervical tenderness, full spontaneous range of motion the neck, trachea midline, no adenopathy Heart: Regular rate and rhythm no murmurs or thrills Lungs: Clear to auscultation bilaterally without wheezes or crackles Abdomen: Soft, minimal lower abdominal tenderness, no palpable hernia although exam limited by body habitus Musculoskeletal: No tenderness, deformity, or edema Neurologic: Awake, alert, and oriented x3, no gross focal neurologic deficits, cranial nerves intact as tested Psych: Mood and affect are appropriate Skin: No rashes Const: Vital Signs, click to edit/add: Vital Signs - 24 hr 06/06/24 22:15 06/06/24 23:52 Temperature 98.5 F Pulse Rate [Right Pulse Oximeter] 83 67 Respiratory Rate 18 Blood Pressure [Ri ght Upper Arm] 154/94 H 148/91 H Pulse Oximetry 96 94 Oxygen Delivery Me thod Room Air Room Air Course Course ED Course: Patient seen and examined, presents today with lower abdominal pain, Reviewed most recent primary care visit from May 25 and patient was seen for this same complaint, no mass noted at that time and symptoms felt to be related to musculoskeletal pain. patient comes to emergency department today with continued pain, saying that his primary care provider told him come the emergency department if pain did not improve. Review of chart shows that patient was instructed to return to the clinic Unless pain was worsening. In any case, patient has no evidence for obstruction, no palpable hernia defect. Labs independently interpreted by me with normal CBC, normal basic panel, normal hepatic panel, negative urinalysis. CT scan is ordered although likelihood of intra-abdominal pathology including colitis, diverticulitis, appendicitis is clinically unlikely. Reevaluation(s) Time of Reevaluation #1: 01:24 Reevaluation #1: CT abdomen and pelvis independently interpreted by me without acute inflammatory findings, no evidence for hernia. Patient should follow with primary care, consider physical therapy, weight loss also beneficial. Vital Signs Vital signs: Initial Vital Signs Temperature 98.5 F 06/06/24 22:15 Temperature Source Temporal Artery Scan 06/06/24 22:15 Pulse Rate 83 06/06/24 22:15 Respiratory Rate 18 06/06/24 22:15 Blood Pressure 154/94 H 06/06/24 22:15 Blood Pressure Mean 114 H 06/06/24 22:15 Blood Pressure Position Sitting 06/06/24 22:15 Pulse Oximetry 96 06/06/24 22:15 Oxygen Delivery Method Room Air 06/06/24 22:15 Vital Signs Temperature 98.5 F 06/06/24 22:15 Pulse Rate 83 06/06/24 22:15 Respiratory Rate 18 06/06/24 22:15 Blood Pressure 154/94 H 06/06/24 22:15 Pulse Oximetry 96 06/06/24 22:15 Oxygen Delivery Method Room Air 06/06/24 22:15 Temperature 98.5 F 06/06/24 22:15 Pulse Rate 67 06/06/24 23:52 Respiratory Rate 18 06/06/24 22:15 Blood Pressure 148/91 H 06/06/24 23:52 Pulse Oximetry 94 06/06/24 23:52 Oxygen Delivery Method Room Air 06/06/24 23:52 MDM - Abdominal Pain Lab Data Labs: Lab Results 06/06/24 06/07/24 Range/Units 23:33 00:00 WBC 8.00 (4.50-11.00) K/uL RBC 5.10 (4.30-5.90) m/uL Hgb 15.4 (13.5-17.5) gm/dL Hct 45.0 (37.0-53.0) % MCV 88 (80-100) fL MCH 30 (26-34) pg MCHC 34 (32-36) gm/dL RDW Coeff of Jun 12.9 (11.5-15.5) % Plt Count 321 (140-440) K/uL Neut % (Auto) 62.7 (42.0-72.0) % Lymph % (Auto) 28.8 (20-44) % [place] % (Auto) 6.4 (0.0-11.0) % Eos % (Auto) 1.0 (0.0-7.0) % Baso % (Auto) 0.5 (0.0-3.0) % Neut # (Auto) 5.02 (1.7-7.0) K/uL Lymph # (Auto) 2.30 (0.90-2.90) K/uL [place] # (Auto) 0.50 (0.00-0.90) K/UL Eos # (Auto) 0.08 (0.00-0.50) K/uL Baso # (Auto) 0.04 (0.00-0.30) K/uL Abs Immat Gran (auto) 0.05 (0.00-0.30) K/uL Imm/Tot Granulo (auto) 0.6 % Sodium 138 (135-149) mmol/L Potassium 3.8 (3.6-5.1) mmol/L Chloride 104 (96-114) mmol/L Carbon Dioxide 24 (20-32) mmol/L Anion Gap 10 (7-15) mEq/L BUN 21 (7-30) mg/dL Creatinine 0.7 (0.5-1.5) mg/dL Estimated Creat Clear 137.00 Estimated GFR 108 ml/min Glucose 117 H (60-115) mg/dL Calcium 9.1 (8.4-10.6) mg/dL Total Bilirubin 0.3 (0.1-1.5) mg/dL AST 26 (12-35) U/L ALT 39 (4-50) U/L Alkaline Phosphatase 57 (40-150) U/L Total Protein 7.7 (6.0-8.3) g/dL Albumin 5.0 (3.3-5.0) g/dL Urine Color Yellow (Yellow) Urine Appearance Clear (Clear) Urine pH 5.5 (5.0-8.5) Ur Specific [place] 1.020 (1.000-1.030) Urine Protein Negative (Negative) Urine Glucose (UA) Negative (Negative) Urine Ketones Negative (Negative) Urine Blood Negative (Negative) Urine Nitrite Negative (Negative) Urine Bilirubin Negative (Negative) Urine Urobilinogen 0.2 (0.2-1.0) Ur Leukocyte Esterase Negative (Negative) Urine RBC 0-2 (0-2) Urine WBC 0-2 (0-5) Ur Squamous Epith Cells Few (None-Few) Urine Bacteria Few A (None) Urine Mucus Moderate A (None) Discharge Plan Discharge Clinical Impression: Abdominal wall pain in both lower quadrants Patient Disposition: Home, Self-Care Instructions: Abdominal Pain (ED) Additional Instructions: Take Tylenol and ibuprofen as needed for pain Follow-up with your primary care doctor discussed physical therapy including core strengthening Activity Level: Activity as Tolerated Discharge Diet: Regular Prescriptions: No Action buspirone 30 mg tablet 30 mg PO BID folic acid 1 mg tablet 2 mg PO DAILY gabapentin 100 mg capsule Patient Comments: TAKE 1 CAPSULE BY MOUTH THREE TIMES DAILY FOR 7 DAYS THEN 2 THREE TIMES DAILY FOR 7 DAYS THEN 3 THREE TIMES DAILY FOR 20 DAYS aripiprazole 5 mg tablet 5 mg PO DAILY duloxetine 60 mg capsule,delayed release(DR/EC) 120 mg PO DAILY prednisone 10 mg tablet 10 mg PO tamsulosin 0.4 mg capsule 0.4 mg PO QPM gabapentin 300 mg capsule 300 mg PO 3XD quetiapine 50 mg tablet 50 - 100 mg PO QPM Rinvoq 15 mg tablet extended release 24 hr PO DAILY Follow Up/Referrals: Provider,Not a Local [Primary Care Provider] - Stand Alone Forms: [facility] Info Instructions
[2024-06-07 00:07] LABS: Basophils Absolute Auto 0.04 K/uL (0.00-0.30); Basophils Percent Auto 0.5 % (0.0-3.0); Eosinophils Absolute Auto 0.08 K/uL (0.00-0.50); Hemoglobin* 15.4 gm/dL (13.5-17.5); Immature Granulocytes Abs Auto 0.05 K/uL (0.00-0.30); Immature Granulocytes Pct Auto 0.6 %; Lymphocytes Percent Auto 28.8 % (20-44); Mean Corpuscular HGB Conc 34 gm/dL (32-36); Mean Corpuscular Hemoglobin 30 pg (26-34); Mean Corpuscular Volume 88 fL (80-100); Monocytes Percent Auto 6.4 % (0.0-11.0); Neutrophils Absolute Auto 5.02 K/uL (1.7-7.0); Neutrophils Percent Auto 62.7 % (42.0-72.0); Platelet Count* 321 K/uL (140-440); RDW Coefficient of Variation % 12.9 % (11.5-15.5)
[2024-06-07 00:08] LABS: Slide Review Reflex No
[2024-06-07 00:24] LABS: Chloride* 104 mmol/L (96-114)
[2024-06-07 00:25] LABS: Potassium* 3.8 mmol/L (3.6-5.1); Sodium* 138 mmol/L (135-149)
[2024-06-07 00:26] LABS: Bacteria Urine Few; Mucus Urine Moderate; RBC Urine 0-2 (0-2); Squamous Epithelial Cell Urine Few (None-Few); WBC Urine 0-2 (0-5)
[2024-06-07 00:27] LABS: Alkaline Phosphatase* 57 U/L (40-150); Anion Gap 10 mEq/L (7-15); Aspartate Amino Transferase* 26 U/L (12-35); Bilirubin Total* 0.3 mg/dL (0.1-1.5); Blood Urea Nitrogen* 21 mg/dL (7-30); Carbon Dioxide* 24 mmol/L (20-32); Creatinine* 0.7 mg/dL (0.5-1.5); Estimated Glomerular Filt Rate 108 ml/min; Glucose* 117 mg/dL (60-115); Total Protein* 7.7 g/dL (6.0-8.3)
[2024-06-07 00:28] LABS: Alanine Aminotransferase* 39 U/L (4-50); Calcium* 9.1 mg/dL (8.4-10.6)
--- OUTSIDE RECORDS SUMMARY | 2024-06-07 00:45 | XMS_ITS | Encounter Summary ---
Author Organization [facility] Address [address] [place] [address] Care Team Providers Care Professor Of Physics Name Role Phone Ami Gudino M.D. Primary Care Provider Reason for Visit * Reason Comments Hernia Possible Hernia * Appointment Request (Routine) - Closed Specialty Diagnoses / Procedures Referred By Kassandra lagunas Referred To Contact Family Medicine Referral ID Status Reason Start Date Expiration Date Visits Re quested Visits Authorized [id number] Closed 05/22/2024 08/22/2025 1 1 Encounter Details Date Type Department Care Team (Late st Contact Info) Description 05/25/2024 8:30 AM PROTECTION CONSULTANT Office Visit Department of Family Medicine, [facility], in [place], [place] [address] [phone] Maddi Munoz P.A.-Sarah., P.A., M.S., M.P.H. [address] [phone] Candidiasis Intertrigo (Primary Dx); Injury Abdominal Muscle [...] often do you attend chur ch or gnosticist services? Never 12/08/2021 Do you belong to any clubs o r organizations such as anglican groups, unions, fraternal or athletic groups, or [...] Answer Date Recorded PHQ-2 Score 2 05/25/2024 [facility] of Occupat ional Health - Occupational Stress [...] your living situation today? I have a [facility] place to live 12/18/2022 Education Answer Date Recorded What is the highest level of school you have completed or the highest degree you have received? Associate degree: occupational, technical, or vocational program 04/07/2021 Sex and Gender Information Value Date Recorded Sex Assigned at Male 03/10/2021 3:00 AM PROTECTION CONSULTANT Legal Sex Male 6:27 PM PROTECTION CONSULTANT Gender Identity Male 03/10/2021 3:00 AM PROTECTION CONSULTANT Sexual Orientation Choose not to disclose 2022 10:55 PM CDT Sexual Orientation Straight 11/05/2022 10 :55 PM CDT documented as of this encounter Last Filed Vital Signs Vital Sign Reading Time Taken Comments Blood Pressure 133/82 05/25/2024 8:11 AM PROTECTION CONSULTANT Re3 check Pulse 69 05/25/2024 8:11 AM PROTECTION CONSULTANT Temperature 36.1 C (96.9 F) 05/25/2024 8:06 AM PROTECTION CONSULTANT Respiratory Rate - - Oxygen Saturation - - Inhaled Oxygen Concentration - - Weight 145 kg (320 lb 5.3 oz) 05/25/2024 8:06 AM PROTECTION CONSULTANT Height 185.5 cm (6' 1.03) 05/25/2024 8:06 AM CS T Body Mass Index 42.23 05/25/2024 8:06 AM PROTECTION CONSULTANT documented in this encounter Progress Notes * Maddi Munoz P.A.-C., PJohn, MCarmenS., M.P.H. 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 Genital exam: (done with a hand folder from staff) Normal genitalia. Normal scrotum and [...] . Etanercept Other (see comments) Facial swelling ECTION CONSULTANT documented in this encounter Plan of Treatment Upcoming Encounters Date Type Department Care Team (Latest Contact Info) Description 08/17/2024 10:00 AM CDT Clinical Communication Virtual Review in [address] [phone] 08/18/2024 12:30 PM CDT Appointment Department of Laboratory Medicine and Pathology, [facility], in [address] [phone] Jessica Hendricks APRN, C.N.P. [address] [place] [phone] 08/18/2024 2:45 PM CDT Office Visit Division of Rheumatology in [address] [phone] Jessica Hendricks APRN, C.N.P. [address] [place] [phone] documented as of this encounter Visit Diagnoses Diagnosis Candidiasis Intertrigo- Primary Injury Abdominal Muscle Subsequent documented in this encounter Additional Health Concerns Assessment Noted Time PHQ-9 Depression Total Score: 4 05/05/19 25 1:10 PM PROTECTION CONSULTANT documented as of this encounter Care Teams Professor Of Physics Relationship Specialty Start Date End Date Ami Gudino M.D. [address] [place] [phone] PCP - General 09/10/23 documented as of this encounter
--- OUTSIDE RECORDS SUMMARY | 2024-06-07 00:45 | XMS_ITS | Clinical Summary ---
Author Organization [facility] Address [address] [place] [address] Care Team Providers Care Spanish Translator Name Role Phone Chata Schwab MD Unavailable [phone] Estiven Hawkins MD Unavailable Unavailable Clinic, [facility] Pro vider Allergies Active Allergy Reactions Criticality Noted Date Comments Etanercept Other - Describe In Comment Field 05/16/2019 Facial swelling Adalimumab Other - Describe In Comment Field 05/16/2019 Facial swelling . 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 Blood BLOOD SPECIMEN / Unknown Venipuncture / Unknown 02/14/2019 9:15 AM BOARD OF DIRECTORS 02/14/2019 9:19 AM BOARD OF DIRECTORS us Chata Schwab MD SEND OUTS Final Resul t [facility] [address] [place] [address], * LIPID PANEL (11/30/2018 10:12 AM CDT) CHOLESTEROL,TOTAL 145 100 - 199 mg/dL 11/30/2018 10:51 AM CDT [facility] TRIGLYCERIDES 65 <150 mg/dL 11/30/2018 10:51 AM CDT [facility] HDL CHOLESTEROL 48 >40 mg/dL 9 10:51 AM CDT [facility] NON-HDL CHOLESTEROL 97 <145 mg/dl 11/30/2018 10:51 AM CDT [facility] CHOL/HDL RATIO 3.02 <4.50 11/30/2018 10:51 AM CDT [facility] LDL CHOLESTEROL 84 <=130 mg/dL 11/30/2018 10:51 AM CDT [facility] PROVIDER ORDERED STATUS RANDOM 11/30/2018 10:51 AM CDT [facility] Blood BLOOD SPECIMEN / Unknown Venipuncture / Unknown 11/30/2018 10:12 AM CDT 11/30/2018 10:12 AM CDT us Faith Caal MD CHEMISTRY Final Result Performing Organization Address City/State/[facility] Co de Phone Number [facility] [address] [place] [address] from Last 3 Months or Most Recently Relevant to Health Maintenance Insurance [employer] Care Teams Spanish Translator Relationship Specialty Start Date End Date Clinic, [facility] [address] [place] [address] PCP - General 11/14/20 Chata Schwab MD [address] [facility] [address] [place] [address] Rheumatology Rheumatology 02/14/19 Estiven Hawkins MD [address] [facility] [address] [place] [address] Family Practice Family Practice 02/14/19
--- OUTSIDE RECORDS SUMMARY | 2024-06-07 00:45 | XMS_ITS | Clinical Summary ---
Author Organization [facility] Address [address] [place] [address] Care Team Providers Care Hand Welt Butter Name Role Phone Ami Gudino M.D. Primary Care Provider Source Comments Patient records contain information from all sites at [facility]. For routine questions regarding patient records, call [phone] during business hours, M-F 8:00 AM - 5:00 PM Central Time. Record requests for emergency care only can be directed to [phone] at any time.[facility] Allergies Active Allergy Reactions Criticality Noted Date [...] Department Care Team Description 05/25/2024 8:30 AM COORDINATOR OF LIBRARY SERVICES Office Visit Department of Family Medicine, [facility], in [place], [place] [address] [address] Maddi Munoz P.A.-C., P.Neeta., M.S., M.P.H. Candidiasis Intertrigo (Primary Dx); Injury Abdominal Muscle Subsequent 04/17/2024 Refill Department of Family Medicine, [facility], in [place], [place] [address] [phone] Britney Singh M.D. Med Refill 04/06/2024 10:00 AM COORDINATOR OF LIBRARY SERVICES Comprehensive Visit Department of Spine in [place], [place] [address] [place] [address] Misbah Bell D.O. Stenosis Spinal Cervical (Primary Dx); Radiculopathy Cervical; Stenosis Spine Foraminal; Pain Arm Right 03/24/2024 Clinical Communication Pharmacy Prior Auth RO [id number] Leeanna Nino Rx Approval (upadacitinib (Rinvoq) 15 mg 24 hr tablet Approval) 03/21/2024 Orders Only [facility] SELF TEST [facility] [address] [place] [address] Ami Gudino M.D. Screening Cancer Colon 03/17/2024 2:00 PM COORDINATOR OF LIBRARY SERVICES Office Visit Division of Rheumatology in [place], [place] [address] [place] [address] Jessica Hendricks APRN, C.N.P. 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 Stenosis Spine [...] often do you attend chur ch or pentecostal services? Never 12/08/2021 Do you belong to any clubs o r organizations such as orthodoxy groups, unions, fraternal or athletic groups, or [...] Answer Date Recorded PHQ-2 Score 2 05/25/2024 [facility] - Occupational Stress [...] your living situation today? I have a [facility] place to live 12/18/2022 Education Answer Date Recorded What is the highest level of school you have completed or the highest degree you have received? Associate degree: occupational, technical, or vocational program 04/07/2021 Sex and Gender Information Value Date Recorded Sex Assigned at Male 03/10/2021 3:00 AM COORDINATOR OF LIBRARY SERVICES Legal Sex Male 6:27 PM COORDINATOR OF LIBRARY SERVICES Gender Identity Male 03/10/2021 3:00 AM COORDINATOR OF LIBRARY SERVICES Sexual Orientation Choose not to disclose 2022 10:55 PM CDT Sexual Orientation Straight 11/05/2022 10 :55 PM CDT Last Filed Vital Signs Vital Sign Reading Time Taken Comments Blood Pressure 133/82 05/25/2024 8:11 AM COORDINATOR OF LIBRARY SERVICES Re3 check Pulse 69 05/25/2024 8:11 AM COORDINATOR OF LIBRARY SERVICES Temperature 36.1 C (96.9 F) 05/25/2024 8:06 AM COORDINATOR OF LIBRARY SERVICES Respiratory Rate 14 11/07/2013 7:45 PM CDT Oxygen Saturation - - Inhaled Oxygen Concentration - - Weight 145 kg (320 lb 5.3 oz) 05/25/2024 8:06 AM COORDINATOR OF LIBRARY SERVICES Height 185.5 cm (6' 1.03) 05/25/2024 8:06 AM C Body Mass Index 42.23 05/25/2024 8:06 AM COORDINATOR OF LIBRARY SERVICES Plan of Treatment Upcoming Encounters Date Type Department Care Team (Latest Contact Info) Description 08/17/2024 10:00 AM CDT Clinical Communication Virtual Review in [place], [place] [address] [place] [address] 08/18/2024 12:30 PM CDT Appointment Department of Laboratory Medicine and Pathology, [facility], in [place], [place] [address] [place] [address] Jessica Hendricks APRN, C.N.P. [address] [place] [phone] 08/18/2024 2:45 PM CDT Office Visit Division of Rheumatology in [place], [place] [address] [place] [address] Jessica Hendricks APRN, C.N.P. 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) ASPARTATE AMINOTRANSFERASE (AST), S/P Routine 03/17/2024 11:27 AM COORDINATOR OF LIBRARY SERVICES 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) CREATININE WITH EGFR, S/P Routine 03/17/2024 11:27 AM COORDINATOR OF LIBRARY SERVICES 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) C-REACTIVE PROTEIN (CRP), S/P Routine 03/17/2024 11:27 AM COORDINATOR OF LIBRARY SERVICES 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) SEDIMENTATION RATE, B Routine 03/17/2024 11:27 AM COORDINATOR OF LIBRARY SERVICES 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) CBC WITH DIFFERENTIAL, B Routine 03/17/2024 11:27 AM COORDINATOR OF LIBRARY SERVICES 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) HEPATITIS B SURFACE ANTIGEN Routine 06/14/2023 2:21 PM CDT Arthritis Rheumatoid (HCC) High Risk Medication COMPREHENSIVE METABOLIC PANEL, S/P Routine 03/24/2023 3:01 PM COORDINATOR OF LIBRARY SERVICES Onychomycosis HIV-1/-2 AG AND AB SCREEN, PLASMA Routine 03/24/2023 3:01 PM COORDINATOR OF LIBRARY SERVICES Human Immunodeficiency Virus Screening LIPID PANEL, S Routine 12/04/2022 12:04 PM CDT Screening Lipid from Last 3 Months or Most Recently Relevant to Health Maintenance Results * Sedimentation Rate (03/17/2024 11:27 AM COORDINATOR OF LIBRARY SERVICES) Sedimentation Rate, B 3 0 - 22 mm/1 h 03/17/2024 3:36 PM COORDINATOR OF LIBRARY SERVICES AUST Blood (Blood, Venous) 03/17/2024 11:27 AM COORDINATOR OF LIBRARY SERVICES 03/17/2024 3:12 PM COORDINATOR OF LIBRARY SERVICES us Jeff Barillas APRNNNoreen LAB BLOOD ADD-ON F inal Result [facility] [address] [place] [address], [facility] - [facility] [address] [place] [address] * CBC with Differential, Blood (03/17/2024 11:27 AM COORDINATOR OF LIBRARY SERVICES) Hemoglobin 14.8 13.2 - 16.6 g/dL 03/17/2024 11:34 AM COORDINATOR OF LIBRARY SERVICES OWAT Hematocrit 44.7 38.3 - 48.6 % 03/17/2024 11:34 AM COORDINATOR OF LIBRARY SERVICES OWAT Erythrocytes 5.06 4.35 - 5.65 x10(12)/L 03/17/2024 11:34 AM COORDINATOR OF LIBRARY SERVICES OWAT MCV 88.3 78.2 - 97.9 fL 03/17/2024 11:34 AM COORDINATOR OF LIBRARY SERVICES OWAT RBC Distrib Width 13.3 11.8 - 14.5 % 03/17/2024 11:34 AM COORDINATOR OF LIBRARY SERVICES OWAT Platelet Count 285 135 - 317 x10(9)/L 03/17/2024 11:34 AM COORDINATOR OF LIBRARY SERVICES OWAT Leukocytes 7.0 3.4 - 9.6 x10(9)/L 03/17/2024 11:34 AM COORDINATOR OF LIBRARY SERVICES OWAT Neutrophils 4.04 1.56 - 6.45 x10(9)/L 03/17/2024 11:34 AM COORDINATOR OF LIBRARY SERVICES OWAT Lymphocytes 2.05 0.95 - 3.07 x10(9)/L 03/17/2024 11:34 AM COORDINATOR OF LIBRARY SERVICES OWAT Monocytes 0.56 0.26 - 0.81 x10(9)/L 03/17/2024 11:34 AM COORDINATOR OF LIBRARY SERVICES OWAT Eosinophils 0.33 0.03 - 0.48 x10(9)/L 03/17/2024 11:34 AM COORDINATOR OF LIBRARY SERVICES OWAT Basophils 0.05 0.01 - 0.08 x10(9)/L 03/17/2024 11:34 AM COORDINATOR OF LIBRARY SERVICES OWAT Blood (Blood, Venous) 03/17/2024 11:27 AM COORDINATOR OF LIBRARY SERVICES 03/17/2024 11:31 AM COORDINATOR OF LIBRARY SERVICES Sarah Barillas APRN.N.P. LAB BLOOD ADD-ON F inal Result [facility] [address] [place] [address], [place] OWAT [facility] in [place] [address] [place] [address] * CRP (C-Reactive Protein) (03/17/2024 11:27 AM COORDINATOR OF LIBRARY SERVICES) C-Reactive Protein (CRP), P <3.0 <5.0 mg/L 03/17/2024 11:55 AM COORDINATOR OF LIBRARY SERVICES OWAT Blood (Blood, Venous) 03/17/2024 11:27 AM COORDINATOR OF LIBRARY SERVICES 03/17/2024 11:31 AM COORDINATOR OF LIBRARY SERVICES Jessica Hendricks APRN, C.N.P. LAB BLOOD ADD-ON F inal Result Performing Organization Address City/[facility]/ZIP Co de Phone Number [facility] [address] [place] [address], [place] [facility] in [place] [address] [place] [address] * ALT (Alanine Aminotransferase) (03/17/2024 11:27 AM COORDINATOR OF LIBRARY SERVICES) Alanine Aminotransferase (ALT), P 46 7 - 55 U/L 03/17/2024 11:55 AM COORDINATOR OF LIBRARY SERVICES OWAT Blood (Blood, Venous) 03/17/2024 11:27 AM COORDINATOR OF LIBRARY SERVICES 03/17/2024 11:31 AM COORDINATOR OF LIBRARY SERVICES Jessica Hendricks APRN, C.N.P. LAB BLOOD ADD-ON F inal Result [facility] [address] [place] [address], [place] OW[place] [facility] in [place] [address] [place] [address] * AST (Aspartate Aminotransferase) (03/17/2024 11:27 AM COORDINATOR OF LIBRARY SERVICES) Aspartate Aminotransferase (AST), P 23 8 - 48 U/L 03/17/2024 11:55 AM COORDINATOR OF LIBRARY SERVICES OWAT Blood (Blood, Venous) 03/17/2024 11:27 AM COORDINATOR OF LIBRARY SERVICES 03/17/2024 11:31 AM COORDINATOR OF LIBRARY SERVICES Jessica Hendricks APRN, C.N.P. LAB BLOOD ADD-ON F inal Result Performing Organization Address City/[facility]/ZIP Co de Phone Number [facility] [address] [place] [address], [place] [facility] [place] [address] [place] [address] * Creatinine with Estimated GFR (03/17/2024 11:27 AM COORDINATOR OF LIBRARY SERVICES) Creatinine 1.04 0.74 - 1.35 mg/dL 03/17/2024 11:55 AM COORDINATOR OF LIBRARY SERVICES OWAT Estimated GFR (eGFR) 84 >=60 mL/min/BSA 03/17/2024 11:55 AM COORDINATOR OF LIBRARY SERVICES OWAT Comment: Estimated GFR calculated using the 2020 CKD_EPI creatinine equation. Blood (Blood, Venous) 03/17/2024 11:27 AM COORDINATOR OF LIBRARY SERVICES 03/17/2024 11:31 AM COORDINATOR OF LIBRARY SERVICES Jessica Hendricks APRN, C.N.P. LAB BLOOD ADD-ON F inal Result [facility] [address] [place] [address], [place] [facility] [place] [address] [place] [address] * Hepatitis B Surface Antigen (06/14/2023 2:21 PM CDT) HBs Antigen, S Nonreactive Nonreactive 06/14/2023 10:18 PM CDT [facility] Blood (Blood, Venous) 06/14/2023 2:21 PM CDT 06/14/2023 9:24 PM CDT Jessica Hendricks APRN, C.N.P. LAB MICROBIOLOGY - BLOOD ORDERABLES Final Result [facility] [address] [place] [address], [facility] - [facility] [address] [place] [address] * HIV-1/-2 Ag and Ab Screen, Plasma (03/24/2023 3:01 PM COORDINATOR OF LIBRARY SERVICES) HIV Ag/Ab Screen, P Negative Negative 03/25/2023 2:36 PM COORDINATOR OF LIBRARY SERVICES [facility] Comment: Negative result does not rule out HIV infection. If exposure to HIV infection occurred <14 days ago, contact the laboratory to request addition of HIV-1/HIV-2 RNA detection, Plasma (HIP12). HIV-1 p24 Ag Screen, P Negative Negative 03/25/2023 2:36 PM COORDINATOR OF LIBRARY SERVICES [facility] Comment: Negative result does not rule out HIV infection. If exposure to HIV infection occurred <14 days ago, contact the laboratory to request addition of HIV-1/HIV-2 RNA detection, Plasma (HIP12). HIV-1 Ab Screen, P Negative Negative 03/25/2023 2:36 PM COORDINATOR OF LIBRARY SERVICES [facility] Comment: Negative result does not rule out HIV infection. If exposure to HIV infection occurred <14 days ago, contact the laboratory to request addition of HIV-1/HIV-2 RNA detection, Plasma (HIP12). HIV-2 Ab Screen, P Negative Negative 03/25/2023 2:36 PM COORDINATOR OF LIBRARY SERVICES [facility] Comment: Negative result does not rule out HIV infection. If exposure to HIV infection occurred <14 days ago, contact the laboratory to request addition of HIV-1/HIV-2 RNA detection, Plasma (HIP12). Blood (Blood, Venous) 03/24/2023 3:01 PM COORDINATOR OF LIBRARY SERVICES 03/25/2023 11:15 AM COORDINATOR OF LIBRARY SERVICES us Britney Singh M.D. LAB MICROBIOLOGY - BLOOD O RDERABLES Final Result [facility] [address] [place] [address], [facility] [place] [address] [place] [address] * (ABNORMAL) Comprehensive Metabolic Panel (03/24/2023 3:01 PM COORDINATOR OF LIBRARY SERVICES) Potassium, P 3.8 3.6 - 5.2 mmol/L 03/24/2023 3:45 PM COORDINATOR OF LIBRARY SERVICES OWAT Sodium, P 141 135 - 145 mmol/L 03/24/2023 3:45 PM COORDINATOR OF LIBRARY SERVICES OWAT Chloride, P 106 98 - 107 mmol/L 03/24/2023 3:45 PM COORDINATOR OF LIBRARY SERVICES OWAT Bicarbonate, P 23 22 - 29 mmol/L 03/24/2023 3:45 PM COORDINATOR OF LIBRARY SERVICES OWAT Anion Gap, P 12 7 - 15 03/24/2023 3:45 PM COORDINATOR OF LIBRARY SERVICES OWAT BUN (Blood Urea Nitrogen), P 22 8 - 24 mg/dL 03/24/2023 3:45 PM COORDINATOR OF LIBRARY SERVICES OWAT Creatinine 0.72(L) 0.74 - 1.35 mg/dL 03/24/2023 3:45 PM COORDINATOR OF LIBRARY SERVICES OWAT Estimated GFR (eGFR) >90 >=60 mL/min/BS A 03/24/2023 3:45 PM COORDINATOR OF LIBRARY SERVICES OWAT Comment: Estimated GFR calculated using the 2020 CKD_EPI creatinine equation. Calcium, Total, P 9.2 8.6 - 10.0 mg/dL 03/24/2023 3:45 PM COORDINATOR OF LIBRARY SERVICES OWAT Glucose, P 105 70 - 140 mg/dL 03/24/2023 3:45 PM COORDINATOR OF LIBRARY SERVICES OWAT Protein, Total, P 7.6 6.3 - 7.9 g/dL 03/24/2023 3:45 PM COORDINATOR OF LIBRARY SERVICES OWAT Albumin, P 4.7 3.5 - 5.0 g/dL 03/24/2023 3:45 PM COORDINATOR OF LIBRARY SERVICES OWAT Aspartate Aminotransferase (AST), P 19 8 - 48 U/L 03/24/2023 3:45 PM COORDINATOR OF LIBRARY SERVICES OWAT Alkaline Phosphatase, P 74 40 - 129 U/L 03/24/2023 3:45 PM COORDINATOR OF LIBRARY SERVICES OWAT Alanine Aminotransferase (ALT), P 36 7 - 55 U/L 03/24/2023 3:45 PM COORDINATOR OF LIBRARY SERVICES OWAT Bilirubin, Total, P 0.4 0.0 - 1.2 mg/dL 03/24/2023 3:45 PM COORDINATOR OF LIBRARY SERVICES OWAT Blood (Blood, Venous) 03/24/2023 3:01 PM COORDINATOR OF LIBRARY SERVICES 03/24/2023 3:04 PM COORDINATOR OF LIBRARY SERVICES us Britney Singh M.D. LAB BLOOD ADD-ON Final Res ult [facility] [address] [place] [address], [facility] OWAT [facility] in [place] [address] [place] [address] * Lipid Panel (12/04/2022 12:04 PM CDT) [...] M.D. LAB BLOOD ADD-ON Final Res ult [facility] [address] [place] [address], [place] [facility] [facility] [place] [address] [place] [address] from Last 3 Months or Most Recently Relevant to Health Maintenance Insurance [facility] [employer] chief creative officer HARJITRODRICKAMANDA [address] [address] Care Teams Hand Welt Butter Relationship Specialty Start Date End Date Ami Gudino M.D. [address] [place] [phone] PCP - General 09/10/23
--- OUTSIDE RECORDS SUMMARY | 2024-06-07 00:45 | XMS_ITS | Encounter Summary ---
Author Organization [facility] Address [address] [place] [address] Care Team Providers Care Mailroom Personnel Name Role Phone Ami Gudino M.D. Primary Care Provider Reason for Visit * Reason Onset Date Comments Rx Approval 03/24/2024 upadacitinib (Ri nvoq) 15 mg 24 hr tablet Approval Encounter Details Date Type Department Care Team (Latest Contact Info) Description 03/24/2024 Clinical Communication Pharmacy Prior Auth [phone] Leeanna Nino [address] [place] [address] Rx Approval (upadacitinib (Rinvoq) 15 mg 24 [...] often do you attend chur ch or orthodoxy services? Never 12/08/2021 Do you belong to any clubs o r organizations such as buddhist groups, unions, fraternal or athletic groups, or [...] Answer Date Recorded PHQ-2 Score 1 03/10/2024 [facility] Questionnaire Answer [...] your living situation today? I have a [facility] place to live 12/18/2022 Education Answer Date Recorded What is the highest level of school you have completed or the highest degree you have received? 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 K REPAIR SUPERVISOR documented in this encounter Plan of Treatment Upcoming Encounters Date Type Department Care Team (Latest Contact Info) Description 08/17/2024 10:00 AM CDT Clinical Communication Virtual Review in [address] [phone] 08/18/2024 12:30 PM CDT Appointment Department of Laboratory Medicine and Pathology, [facility], in [place], [place] [address] [place] [address] Jessica Hendricks APRN, C.N.P. [address] [place] [address] 08/18/2024 2:45 PM CDT Office Visit Division of Rheumatology in [place], [place] [address] [place] [address] Jessica Hendricks APRN, C.N.P. [address] [place] [phone] documented as of this encounter Visit Diagnoses Not on filedocumented in this encounter Additional Health Concerns Assessment Noted Time PHQ-9 Depression Total Score: 3 03/10/20 24 1:06 PM TRUCK REPAIR SUPERVISOR documented as of this encounter Care Teams Mailroom Personnel Relationship Specialty Start Date End Date Ami Gudino M.D. [address] [place] [phone] PCP - General 09/10/23 documented as of this encounter
== END 2024-06-07 01:36 | disposition home or self-care (01) ==
PROVIDERS: Emergency Provider Family Medicine
DX: R10.30 Lower abdominal pain, unspecified (principal)
CPT/HCPCS: 36415; 74177; 80053; 81001; 85025; 87086; 99284; 99285; Q9967